=== PATIENT | male | born 1990 ===

== ENCOUNTER → 2023-06-25 | Outpatient (CLI) | payer OTHER ==
[2023-06-27 22:11] LABS: CHLAMYDIA TRACHOMATIS, NAA Negative (Negative)
== END ==
LOC: LAB SHORT 10:30 → LAB 10:30
PROVIDERS: Physician Assistant
DX: Z11.3 Encounter for screening for infections with a predominantly sexual mode of transmission (principal)
CPT/HCPCS: 87491; 87591

== ENCOUNTER 2023-10-08 09:08 | Emergency (ER) | payer OTHER ==
[~2023-10-08] VITALS: Ht 185.4 cm; Wt 83.0 kg
[2023-10-08] MEDS ORDERED: BUPR75 (09:42)
[2023-10-08] MEDS ORDERED: FLUO10 (09:42)
[2023-10-08 09:57] LABS: Source, Urine Clean Catch
[2023-10-08 10:01] LABS: Appearance, Urine Hazy (Clear); BASOPHILS ABSOLUTE AUTO 0.04 K/mm3 (0.00-0.23); BASOPHILS PERCENT AUTO 1 % (0-2); Bilirubin, Urine Neg (Neg); Blood, Urine 5+ (Neg); Color, Urine Yellow (P-Yellow); EOSINOPHILS ABSOLUTE AUTO 0.24 K/mm3 (0.00-0.68); EOSINOPHILS PERCENT AUTO 3 % (0-6); Glucose Qualitative, Urine Neg (Neg); Hematocrit 37.6 % (37.0-53.0); Hemoglobin 13.4 g/dL (13.5-17.5); IMMATURE GRAN ABSOLUTE AUTO 0.02 K/mm3 (0.00-0.10); IMMATURE GRAN PERCENT AUTO 0 % (0-1); Ketones, Urine 4+ (Neg); LYMPHOCYTES PERCENT AUTO 17 % (21-46); Leukocyte Esterase, Urine Neg (Neg); MONOCYTES PERCENT AUTO 5 % (4-13); Mean Corpuscular HGB 30.7 pg (26.0-34.0); Mean Corpuscular HGB Conc 35.6 g/dL (31.5-36.5); Mean Corpuscular Volume 86 fL (80-100); NEUTROPHILS ABSOLUTE AUTO 6.39 K/mm3 (1.96-9.15); NEUTROPHILS PERCENT AUTO 75 % (41-73); Nitrite, Urine Neg (Neg); Platelet Count 194 K/mm3 (150-400); Protein, Urine 2+ (Neg); RDW Standard Deviation 37.7 fL (35.1-46.3); Red Blood Cell Count 4.36 M/mm3 (4.30-5.90); Specific Gravity, Urine 1.025 (1.003-1.022); Urobilinogen, Urine NORM (Normal); White Blood Cell Count 8.49 K/mm3 (4.00-11.30)
[2023-10-08 10:08] LABS: Bacteria Rare /hpf; Red Blood Cells, Urine TNTC /hpf (0-2)
[2023-10-08 10:09] LABS: Mucus Mod (0-Heavy); Squamous Epithelial Cells Few /hpf (Few)
[2023-10-08 10:19] LABS: Albumin, Blood 4.6 g/dL (3.4-5.0); Albumin/Globulin Ratio 1.5 (0.8-1.8); Bilirubin, Total 0.4 mg/dL (0.1-1.0); Calcium, Blood 9.2 mg/dL (8.5-10.1); Creatinine, Blood 0.89 mg/dL (0.60-1.20); Globulin, Blood 3.1 g/dL (2.2-4.0); Potassium, Blood 3.7 mmol/L (3.5-5.5); Total Protein, Blood 7.7 g/dL (6.4-8.2)
[2023-10-08 10:54] VITALS: BP 108/70
[2023-10-08] MEDS ORDERED: TAMS.4ER PO (10:56)
== END 2023-10-08 11:45 | disposition home or self-care (01) ==
LOC: ER 09:08
PROVIDERS: Physician Assistant
DX: R10.9 Unspecified abdominal pain (principal); M43.06 Spondylolysis, lumbar region; Z79.899 Other long term (current) drug therapy
CPT/HCPCS: 74176; 80053; 81001; 85025; 96361; 96374; 99285-25; J1885; J7030